=== PATIENT | female | born 1965 ===

== ENCOUNTER 2018-08-16 09:13 | Outpatient (CLI) | payer SELFPAY | END 2018-08-16 09:14 | disposition home or self-care (01) | LOC: C.LAB 09:13 | DX: M35.9 Systemic involvement of connective tissue, unspecified (principal) ==

== ENCOUNTER 2018-11-25 07:32 | Outpatient (CLI) | payer SELFPAY | END 2018-11-25 07:33 | disposition home or self-care (01) | LOC: C.LAB 07:32 | DX: I10 Essential (primary) hypertension (principal); E78.2 Mixed hyperlipidemia; R74.0 Nonspecific elevation of levels of transaminase and lactic acid dehydrogenase [LDH]; R73.01 Impaired fasting glucose; Z12.11 Encounter for screening for malignant neoplasm of colon; Z13.9 Encounter for screening, unspecified ==

== ENCOUNTER 2018-11-29 08:18 | Outpatient (CLI) | payer SELFPAY | END 2018-11-29 08:19 | disposition home or self-care (01) | LOC: C.LAB 08:18 | DX: I10 Essential (primary) hypertension (principal) ==

== ENCOUNTER 2018-12-06 09:21 | Outpatient (CLI) | payer OTHER, SELFPAY | END 2018-12-06 09:22 | disposition home or self-care (01) | LOC: C.USIC 09:21 | DX: Z12.31 Encounter for screening mammogram for malignant neoplasm of breast (principal); R74.0 Nonspecific elevation of levels of transaminase and lactic acid dehydrogenase [LDH]; I10 Essential (primary) hypertension ==